=== PATIENT | female | born 1975 | race Caucasian/White ===

== ENCOUNTER 2018-11-09 10:01 | Emergency (ER) | payer SELFPAY ==
[2018-11-09 11:20] LABS: ADD MAN DIFF? NO
[2018-11-09 11:27] LABS: WHITE BLOOD COUNT 3.8 10^3/ul (4.8-10.8)
[2018-11-09 11:27] LABS: ABNORMAL IP MESSAGE 1; BASOPHILS % 0.5 % (0.0-2.0); EOSINOPHILS % 0.3 % (0.0-7.0); HEMATOCRIT 33.8 % (37.0-47.0); HEMOGLOBIN 11.3 g/dl (12.0-16.0); LYMPHOCYTES # 1.4 10^3/ul (0.8-2.9); LYMPHOCYTES % 35.9 % (15.0-51.0); MEAN CORPUSCULAR HEMOGLOBIN 31.2 pg (29.0-33.0); MEAN CORPUSCULAR HGB CONC 33.4 g/dl (32.0-37.0); MEAN CORPUSCULAR VOLUME 93.4 fl (82.0-101.0); MEAN PLATELET VOLUME 13.1 fl (7.4-10.4); MONOCYTE # 0.2 10^3/ul (0.3-0.9); MONOCYTES % 5.5 % (0.0-11.0); NEUTROPHIL # 2.2 10^3/ul (1.6-7.5); NEUTROPHILS % 57.5 % (39.0-77.0); PLATELET COUNT 168 10^3/UL (140-415); RED BLOOD COUNT 3.62 10^6/ul (4.20-5.40); RED CELL DISTRIBUTION WIDTH 13.2 % (11.5-14.5)
[2018-11-09] MEDS: PROCHLORPERAZINE 10 MG INJ IV ×2 (11:30→12:27)
[2018-11-09 11:39] LABS: POSITIVE DIFF @See below
[2018-11-09 11:41] LABS: ANION GAP 9 (5-13); BLOOD UREA NITROGEN 13 mg/dl (7-20); CALCIUM 8.8 mg/dl (8.4-10.2); CARBON DIOXIDE 27 mmol/L (21-31); CHLORIDE 103 mmol/L (97-110); CREATININE 0.61 mg/dl (0.44-1.00); Estimated GFR > 60 mL/min (>60); GLUCOSE 69 mg/dl (70-220); POTASSIUM 3.6 mmol/L (3.5-5.1); SODIUM 139 mmol/L (135-144)
[2018-11-09 11:44] LABS: ALANINE AMINOTRANSFERASE 75 IU/L (13-69); ALBUMIN 3.8 g/dl (3.3-4.9); ALKALINE PHOSPHATASE 177 IU/L (42-121); ASPARTATE AMINO TRANSFERASE 57 IU/L (15-46); BILIRUBIN,INDIRECT 0.4 mg/dl (0-1.1); BILIRUBIN,TOTAL 0.4 mg/dl (0.2-1.3); LIPASE 47 U/L (23-300); TOTAL PROTEIN 6.6 g/dl (6.1-8.1)
[2018-11-09 11:53] LABS: TROPONIN-I < 0.012 ng/ml (0.000-0.120)
[2018-11-09] MEDS: HYDROmorphONE 0.5 MG/0.5 ML SYG IV ×2 (12:27→13:31)
[2018-11-09] MEDS: SOD CHLORIDE 0.9% 1,000 ML IV (12:28)
[2018-11-09] MEDS: DIPHENHYDRAMINE 50 MG INJ IV (12:28)
[2018-11-09] MEDS: ONDANSETRON 4 MG INJ IV (13:51)
[2018-11-09] MEDS ORDERED: LEVETIRACETAM 1000 MG (PMX) 100 ML IVPB (14:00)
[2018-11-09] MEDS: LEVETIRACETAM 500 MG (PMX) 100 ML IVPB (14:31)
[2018-11-09] MEDS: CARBAMAZEPINE 200 MG TAB PO (14:40)
[2018-11-09 14:50] LABS: ADD UMIC YES; UR ASCORBIC ACID NEGATIVE (NEGATIVE); UR BACTERIA FEW /HPF (NONE SEEN); UR BILIRUBIN (Dip) NEGATIVE (NEGATIVE); UR BLOOD (Dip) NEGATIVE (NEGATIVE); UR CLARITY SLIGHTLY CLOUDY (CLEAR); UR COLOR YELLOW (YELLOW); UR GLUCOSE (Dip) NEGATIVE (NEGATIVE); UR KETONES (Dip) 2+ mg/dL (NEGATIVE); UR LEUKOCYTE ESTERASE (Dip) NEGATIVE Leu/ul (NEGATIVE); UR NITRITE (Dip) NEGATIVE (NEGATIVE); UR RBC 1 /HPF (0-5); UR SPECIFIC GRAVITY (Dip) 1.017 (1.003-1.030); UR SQUAMOUS EPITHELIAL CELL FEW /HPF (FEW); UR TOTAL PROTEIN (Dip) 1+ mg/dl (NEGATIVE); UR UROBILINOGEN (Dip) NEGATIVE (NEGATIVE); UR WBC 8 /HPF (0-5)
== END 2018-11-09 15:19 | disposition home or self-care (01) ==
LOC: E/R 10:01
DX: R07.9 Chest pain, unspecified (principal); M79.10 Myalgia, unspecified site; G89.3 Neoplasm related pain (acute) (chronic); D72.819 Decreased white blood cell count, unspecified; R74.0 Nonspecific elevation of levels of transaminase and lactic acid dehydrogenase [LDH]; D64.9 Anemia, unspecified; R10.84 Generalized abdominal pain; C25.9 Malignant neoplasm of pancreas, unspecified; C79.01 Secondary malignant neoplasm of right kidney and renal pelvis; C79.02 Secondary malignant neoplasm of left kidney and renal pelvis
CPT/HCPCS: 36415; 71045; 80048; 80076; 81001; 83690; 84484; 85025; 93005; 96374; 96375; 96376; 99285-25